=== PATIENT | male | born 1960 | race Caucasian/White ===

== ENCOUNTER 2017-08-09 19:12 | Inpatient (IN) | payer OTHER ==
[~2017-08-09] VITALS: Ht 182.9 cm; Wt 86.2 kg
--- NOTE | ~2017-08-09 | EKG ---
[address] [address] ELECTROCARDIOGRAM REPORT Name: JOYCE NICHOLS Room #: 205-P ADM IN M.R.#: [id number] Admission: 08/09/17 Attend Phys: Nancy Leon MD Discharge: Date of : 56 Report #: [id number] THIS REPORT FOR: //name// [facility] Test Date: 2017-08-18 Test Time: 06:10:27 Pat Name: JOYCE NIHCOLS Department: Room: 205 P Gender: M Product Consultant: REJI : 1960 Requested By: Michel Merchant Order Number: [id number] MD: Bran Dempsey Measurements Intervals [place] Rate: 69 P: 24 [place]: 157 QRS: 52 QRSD: 102 T: 59 QT: 612 QTc: 656 Interpretive Statements Sinus rhythm Prolonged QT interval Baseline wander in lead(s) I,III,aVL Compared to ECG 08/17/2017 12:11:41 Sinus rhythm has replaced atrial fibrillation the ST and T wave abnormality is less pronounced Electronically Signed On 08-18-2017 8:08:16 CDT by Bran Dempsey [email or web address] <ELECTRONICALLY SIGNED> By: Bran Dempsey MD, [facility] 08/18/17 0808 0610 Bran Dempsey MD, [facility] /EPI
--- NOTE | ~2017-08-09 | O ---
[facility] [place] [address] OPERATIVE REPORT Name: JOYCE NICHOLS Room #: 244-P ADM IN M.R.#: [id number] Admission: 08/09/17 Attend Phys: Nancy Leon MD Discharge: Date of : 56 Report #: [id number] THIS REPORT FOR: //name// CC: Hubert Merchant MD [facility] physician/PCP Nancy Leon PREOPERATIVE DIAGNOSES: Coronary artery disease, non-ST segment elevation myocardial infarction, normal left ventricular systolic function. FINAL DIAGNOSES: Coronary artery disease, non-ST segment elevation myocardial infarction, normal left ventricular systolic function. OPERATIVE PROCEDURE PERFORMED: 1. Coronary artery bypass grafting x 4 with left internal mammary artery to the left anterior descending, radial artery graft sequence to obtuse marginal 1 and obtuse marginal 2, saphenous vein graft to posterior descending artery. 2. Left radial artery harvest. SURGEON: Martin Littlejohn MD SERVICES MGR: Nicanor Pineda MD ANESTHESIA: General. OPERATIVE INDICATIONS: The patient is a 56-year-old male with a history of hypertension and hyperlipidemia who presented with chest pain, found to have non-ST segment elevation myocardial infarction, has undergone evaluation showing significant multivessel coronary artery disease, preserved left ventricular systolic function. He is brought to the operating room now for coronary artery bypass grafting. OPERATIVE SUMMARY: The patient brought to the operating room and placed on the OR table in supine position. After anesthesia was induced via the general endotracheal route and monitoring lines have been positioned, the patient was prepped and draped in sterile fashion with chlorhexidine. I first harvested radial artery from the left forearm using a Harmonic scalpel, saphenous vein was harvested from the left lower extremity using endoscopic techniques. A median sternotomy incision was then made and the left internal mammary artery was harvested by Dr. Pineda. I then was the primary surgeon for the remainder of this case. We opened the pericardium, systemically anticoagulated the patient with heparin. Cannulae were placed in ascending aorta and the right atrium. An antegrade cardioplegic cannula was positioned, cardiopulmonary bypass was begun, and then a retrograde cardioplegic cannula was positioned. Under low flow conditions, the aorta was crossclamped and the heart was arrested with approximately 1 liter of cold antegrade cardioplegia, followed by 500 mL of cold [address] [address] OPERATIVE REPORT Name: JOYCE NICHOLS Adama Room #: 244-P [facility]#: [id number] Admission: 08/09/17 Attend Phys: Nancy Leon MD Discharge: Date of : 56 Report #: [id number] retrograde cardioplegia. This was augmented with topical ice slush. Diastolic arrest was achieved and maintained throughout this operation with intermittent doses of cold retrograde and antegrade cardioplegia as well as topical ice slush. We first opened up the second obtuse marginal vessel. This was the one that bifurcated. We were able to easily pass a 1.5 mm probe into the distal aspect of this vessel. Thus, only 1 bypass was needed at this site. We constructed this anastomosis in an end-to-side fashion with 7-0 Prolene. We then opened up the ramus intermedius vessel. It was a large vessel, closer to 1.9 mm in size. We constructed a distal anastomosis in a fuls-po-ouvm fashion at this site. The radial artery was brought around and a proximal anastomosis was fashioned to the ascending aorta with 7-0 Prolene after a 4.8 punch aortotomy was created. Next, we examined the right coronary system. We looked at the posterolateral branch, it was small. We therefore opened up the posterior descending artery just after its takeoff. We were able to pass a 1.5 mm probe down the posterior descending artery and down the distal right coronary artery into the posterolateral branch. Therefore, only 1 graft was needed. This was performed with saphenous vein in an end-to-side fashion with 7-0 Prolene. We brought the saphenous vein around to the ascending aorta, measured it to the appropriate length, cut it and performed a proximal anastomosis to the ascending aorta with 6-0 Prolene after a 4.8 punch aortotomy was created. Lastly, the GEORGIE was anastomosed to the left anterior descending. The GEORGIE was of moderate size, but had good flow. The left anterior descending was a large vessel, greater than 2 mm in size at this site. A distal anastomosis was carried out in an end-to-side fashion with 7-0 Prolene and the pedicle was tacked to the epicardium with 6-0 Prolene. We then gave warm cardioplegia both retrograde and antegrade. We de-aired the ascending aorta and the vein grafts as well as the radial artery graft. Then, under low flow conditions the aorta crossclamp was released to begin the period of reperfusion. The patient was rewarmed to 37 degree centigrade. We placed atrial and ventricular pacing wires. The patient returned to sinus bradycardia. We did perform atrial pacing during this case. Three successive doses of calcium and a single dose of magnesium were given every 3-5 minute intervals. After a suitable period of reperfusion, the lungs were reinflated. The patient was weaned from cardiopulmonary bypass without inotropic support. Protamine was given to reverse the heparin, decannulation was effected. Once satisfactory hemostasis was achieved, we placed two 32-Czech chest tubes in the anterior mediastinum. A 24 Lalito drain was placed in the left pleural space. They were all brought out through separate stab incisions. The sternum was closed with #7 wire. The fascia, subcutaneous and skin were closed in multiple layers with absorbable sutures. The procedure was completed. The patient was taken to the [facility] [address] [place] [address] OPERATIVE REPORT Name: JOYCE NICHOLS Room #: 244-P [facility] IN .R.#: [id number] Admission: 08/09/17 Attend Phys: Nancy Leon MD Discharge: Date of : 56 Report #: [id number] CVICU in stable condition. Cardiopulmonary bypass time and crossclamp times are not available to me at the time of this dictation. <ELECTRONICALLY SIGNED> By: Martin Littlejohn MD 08/13/17 0745 1437 1721 Martin Littlejohn MD /nt
--- NOTE | ~2017-08-09 | H ---
[facility] [place] [address] [address] HISTORY AND PHYSICAL Name: JOYCE NICHOLS Room #: 216-P ADM IN M.R.#: [id number] Admission: 08/09/17 Attend Phys: Nancy Leon MD Discharge: Date of : 56 Report #: [id number] THIS REPORT FOR: //name// CC: [facility] physician/PCP Nancy Leon DATE OF SERVICE: 08/09/2017 ATTENDING PHYSICIAN: Dr. Bacon. PRIMARY CARE PHYSICIAN: Hubert Jeffries MD. CHIEF COMPLAINT: Coronary artery disease. HISTORY OF PRESENT ILLNESS: The patient is a 56-year-old male who presented on the morning of 08/09/2017 to [facility] with complaints of chest pain. He initially had chest pain around 2:00 in the morning when he was going to bed and later on woke up at 8:00 with worsening chest pain. He did have some ache in his left elbow as well. He was not having any jaw pain or shortness of breath with it. He does have a history of hypertension and hyperlipidemia and had run out of his medications one to two months ago and has not been able to get them refilled. He does take a low-dose aspirin occasionally. He says he had similar chest pain a few weeks ago that lasted for about 4 to 5 minutes, but it had resolved on its own. He was also admitted at [facility] for chest pain back in November 2016 and had a cardiac stress test, which was negative. He on his initial evaluation at [facility], he was noted to have a mildly elevated troponin of 0.11. He has already been taken to the laboratory analyst where he was found to have 70% left main artery disease, 99% circumflex disease, 60-70% RCA with 80% ramus occlusions and right KERLINE lesion of 80%. His EF is 60%. He was transferred to [facility] for cardiothoracic surgery evaluation for CABG. He is currently resting comfortably and in no acute distress. PAST MEDICAL HISTORY: GERD, hypertension, hyperlipidemia. PAST SURGICAL HISTORY: None. ALLERGIES: None. HOME MEDICATIONS: Atorvastatin 20 mg p.o. at bedtime, metoprolol 25 mg p.o. b.i.d., Protonix 40 mg daily, folic acid 1 mg p.o. daily and thiamine 100 mg p.o. daily. SOCIAL HISTORY: The patient smokes a half pack of cigarettes per day. He has been smoking for at least 40 years. He denies any drug use. He does drink alcohol regularly, usually about 6-8 beers per day throughout the evenings. He [address] [address] HISTORY AND PHYSICAL Name: JOYCE NICHOLS Room #: 216-P [facility] IN M.R.#: [id number] Admission: 08/09/17 Attend Phys: Nancy Leon MD Discharge: Date of : 56 Report #: [id number] does drink more on the weekends. His last drink was on Wednesday evening. He denies any problems of alcohol withdrawal symptoms in the past. He lives at home with his daughter and son-in-law. He works in [employer] in [employer]. FAMILY HISTORY: His mother had heart disease fairly young onset requiring her first CABG in her 50s. REVIEW OF SYSTEMS: Twelve point review of systems was reviewed with the patient, otherwise negative unless stated in the HPI. PHYSICAL EXAMINATION: GENERAL: The patient is an alert male, in no acute distress. VITAL SIGNS: Temperature is 36.3, heart rate 67, respirations 18, blood pressure 131/81, oxygen 99% on room air. HEENT: PERRLA. Sclerae is nonicteric. Oral mucosa is pink and moist. NECK: Supple, no JVD noted. CARDIOVASCULAR: Normal S1, S2. No murmurs, rubs or gallops. RESPIRATORY: Breath sounds are clear bilaterally. No wheezing or rhonchi. Breathing is nonlabored. ABDOMEN: Soft, nontender, nondistended without pain. VASCULAR: No edema noted. Pedal pulses are 2+. No calf tenderness. NEUROLOGIC: The patient is alert and oriented x 3. Speech is clear. He is answering questions appropriately and following commands. No focal neuro deficits noted. SKIN: Intact. No rashes or lesions. LABORATORY DATA AND DIAGNOSTICS: WBC is 6.9, hemoglobin is 16.6, platelets 269. Sodium 140, potassium 3.8, BUN 7, creatinine 1.0. Glucose 111. Lipase is 195. The LFTs are within normal limits. INR is 1.0. BNP is 168. Troponin is 0.11 and a chest x-ray was negative. ASSESSMENT AND PLAN: 1. Severe coronary artery disease. The patient was sent from [facility] for cardiothoracic surgery consultation. He will likely need a coronary artery bypass graft because of multivessel disease based on his cardiac catheterization today. We will consult Cardiothoracic Surgery as well as Cardiology. He had already been started on therapeutic Lovenox b.i.d., which we will continue. We will check a lipid panel and address cardiac risk factors. 2. Hypertension. Blood pressure is stable. Continue metoprolol at home. 3. Hyperlipidemia. Check lipid panel and continue statin therapy. 4. Tobacco abuse. The patient has been advised to quit. 5. Alcohol abuse. The patient denies any problems with alcohol withdrawal in the past. We will follow CIWA score and use Ativan p.r.n. 6. Deep vein thrombosis prophylaxis. Continue with Lovenox. [facility] [address] [address] HISTORY AND PHYSICAL Name: JOYCE NICHOLS Room #: 216-P ADM IN M.R.#: [id number] Admission: 08/09/17 Attend Phys: Nancy Leon MD Discharge: Date of : 56 Report #: [id number] We will continue to follow the patient closely throughout the hospitalization and make changes based on clinical status. <ELECTRONICALLY SIGNED> By: IGNACIO Grimaldo 08/10/17 0955 0908 0947 IGNACIO Grimaldo /nt
--- NOTE | ~2017-08-09 | HC ---
[facility] [place] [address] CONSULTATION Name: JOYCE NICHOLS Room #: 216-P ADM IN M.R.#: [id number] Admission: 08/09/17 Attend Phys: Nancy Leon MD Discharge: Date of : 56 Report #: [id number] THIS REPORT FOR: //name// CC: Hubert Jeffries MD [facility] physician/PCP Nancy Leon DATE OF SERVICE: 08/10/2017 HISTORY OF PRESENT ILLNESS: The patient is a 56-year-old single white male who was transferred from [facility] for consideration of coronary artery bypass surgery. The patient had a previous history of chest pain. He was actually admitted to [facility] in [place] in November of this year with chest pain. His troponin was noted to be 0.67. He underwent a nuclear stress test that actually showed no evidence of ischemia. Echocardiogram showed normal left ventricular function. He was placed on blood pressure medications and cholesterol lowering medications, which he stopped taking. Since that time, he continues to smoke and does not exercise on a regular basis. The patient noted about 2 weeks prior to admission he had an episode of chest pressure lasting several minutes and resolved. On the night prior to admission, again he had pressure chest, lasted several minutes and resolved. On August 09, he awakened at 8:00 in the morning with pressure in his chest felt short of breath. His daughter drove him to the emergency room. I actually saw him in consultation at [facility] on August 09. His symptoms seem to be consistent with unstable angina, so I recommended a cardiac catheterization. This was performed at [facility] on August 09. Results showed normal left ventricular function. There was a 70% stenosis of the proximal LAD and a 70% stenosis of the diagonal branch. There was a ramus intermediate branch that was noted to bifurcate both limbs, had 80% stenosis. The circumflex artery had a long mid subtotal 99% stenosis prior to a distal marginal branch. The right coronary artery had a mid 60% stenosis and a 70% stenosis at the distal bifurcation. Results were discussed with the patient. I felt he had severe multivessel coronary artery disease, not readily amenable to stenting. I recommended that he be considered for coronary artery bypass surgery. The patient was given subcutaneous Lovenox 80 mg following the procedure from his right radial artery. A Vasc band was placed. He was then transferred to [facility] for consideration of coronary artery bypass surgery. The patient has had no further chest pain since his admission. PAST MEDICAL HISTORY: Significant for no surgical procedures. MEDICATIONS: He currently is on no chronic medications. ALLERGIES: He has no known drug allergies. FAMILY HISTORY: His mother had coronary artery bypass surgery. [facility] [address] [place] [address] CONSULTATION Name: JOYCE NICHOLS Room #: 216-P [facility] IN M.R.#: [id number] Admission: 08/09/17 Attend Phys: Nancy Leon MD Discharge: Date of : 56 Report #: [id number] SOCIAL HISTORY: He is , lives with a daughter in [place], [place]. He works in sheet metal work. He smokes a half pack of cigarettes a day. He does drink up to 6-pack of beer a day. Denies illicit drug use. REVIEW OF SYSTEMS: He has no history of stroke, asthma, peptic ulcer disease, liver disease, kidney disease, cancer, psychiatric illness, or chronic skin condition. PHYSICAL EXAMINATION: GENERAL: Middle-aged male. VITAL SIGNS: Blood pressure was 130/80, pulse is 70, he was afebrile. HEENT: He was anicteric. Conjunctivae pink. Mucous membranes are moist. NECK: Veins nondistended. No carotid bruits. Neck was supple. CHEST: Clear to auscultation. HEART: Regular rate and rhythm without murmur. ABDOMEN: Soft and nontender. EXTREMITIES: Had no edema. Dorsalis pedis pulse 2+ bilaterally. SKIN: Warm and dry. NEUROLOGIC: Nonfocal. His chest x-ray at [facility] showed normal heart size, clear lung leung. ECG showed sinus rhythm without ST or T-wave change. LAB WORK: Cholesterol is 140. Creatinine 1.0 and glucose 111. Liver function studies were normal. Troponin was 0.11. Previous cholesterol was 194, triglyceride 179, HDL 40, and LDL 119. White blood cell count 6.9 and hemoglobin 16.6. IMPRESSION AND RECOMMENDATIONS: 1. Acute coronary syndrome. Secondary to coronary artery disease. 2. Coronary artery disease. Noted to be diffuse and multivessel. Recommend consideration for coronary artery bypass surgery. The patient will be seen by cardiovascular surgery. 3. Hypertension. I would recommend starting a beta toan. 4. Hypercholesterolemia. I would recommend starting a statin drug. 5. Tobacco abuse. Recommended smoking cessation. 6. Excessive alcohol intake. I would consider moderation in alcohol intake. <ELECTRONICALLY SIGNED> By: Michel Merchant MD, [facility] 08/11/17 1128 0808 1505 Michel Merchant MD, FACC /nt
--- NOTE | ~2017-08-09 | EKG ---
[address] [address] ELECTROCARDIOGRAM REPORT Name: JOYCE NICHOLS Room #: 244-P ADM IN M.R.#: [id number] Admission: 08/09/17 Attend Phys: Nancy Leon MD Discharge: Date of : 56 Report #: [id number] THIS REPORT FOR: //name// [facility] Test Date: 2017-08-12 Test Time: 15:49:03 Pat Name: JOYCE NICHOLS Department: Room: [facility] Gender: M Combat Control Manager: Julia GRAHAM : 1960 Requested By: Toma Wright Order Number: [id number] MD: Adolfo Rabago Measurements Intervals [place] Rate: 91 P: 62 NC: 144 QRS: 78 QRSD: 94 T: 79 QT: 382 QTc: 471 Interpretive Statements Sinus rhythm Abnormal R-wave progression, early transition No previous ECG available for comparison Electronically Signed On 08-12-2017 15:53:46 CDT by Adolfo Rabago [email or web address] <ELECTRONICALLY SIGNED> By: Adolfo Rabago MD 08/12/17 1553 1549 1549 Adolfo Rabago MD /RONALDO
--- NOTE | ~2017-08-09 | 2DMMODE ---
[facility] [address] [place] [address] 2 D/M-MODE ECHOCARDIOGRAM Name: SIMOENJOYCE W Room #: 216-P [facility] IN ..#: [id number] Admission: 08/09/17 Attend Phys: Nancy Leon Discharge: Date of : 56 Date of Service: 08/10/17 1248 Report #: [id number] THIS REPORT FOR: //name// APPROVED REPORT Study performed: 08/10/2017 10:09:46 EXAM: Comprehensive 2D, Doppler, and color-flow Echocardiogram Patient Location: Echo lab Room #: 216 Status: routine BSA: 2.01 HR: 52 bpm BP: 115/74 mmHg Rhythm: NSR Other Information Study Quality: Adequate Indications CAD. NSTEMI. Pre-Op CABG 2D Dimensions RVDd: 29.01 mm LVEF(%): 52.34 (>50%) IVSd: 9.30 (7-11mm) LVOT Diam: 21.63 (18-24mm) LVDd: 46.14 mm PWd: 8.32 (7-11mm) Ascending Ao: 33.41 (22-36mm) LVDs: 33.78 (25-40mm) Aortic Root: 39.44 mm York's LVEF: 52.34 % Volumes Left Atrial Volume (Systole) Single Plane 4CH: 21.57 mL Single Plane 2CH: 41.54 mL LA ESV Index: 17.00 mL/m2 Aortic Valve AoV Peak Cortez.: 0.94 m/s AO Peak Gr.: 3.53 mmHg LVOT Max P.68 mmHg LVOT Max V: 0.82 m/s EMMA Vmax: 3.20 cm2 Mitral Valve E/A Ratio: 1.0 MV Decel. Time: 249.95 ms [facility] [place] [address] 2 D/M-MODE ECHOCARDIOGRAM Name: JOYCE NICHOLS Room #: 216-P [facility] IN .R.#: [id number] Admission: 08/09/17 Attend Phys: Nancy Leon Discharge: Date of : 56 Date of Service: 08/10/17 1248 Report #: [id number] MV E Max Cortez.: 0.58 m/s MV A Cortez.: 0.59 m/s MV PHT: 72.49 ms IVRT: 78.43 ms Pulmonary Valve PV Peak Cortez.: 0.73 m/s PV Peak Gr.: 2.14 mmHg Pulmonary Vein P Vein S: 0.37 m/s P Vein D: 0.45 m/s P Vein S/D Ratio: 0.82 Tricuspid Valve RAP Estimate: 5.00 mmHg Left Ventricle The left ventricle is normal size. mild lateral hypokinesis There is normal left ventricular wall thickness. Left ventricular systolic function is normal. LVEF is 50- 55%. Mild diastolic dysfunction is present (impaired relaxation pattern). Right Ventricle The right ventricle is normal size. The right ventricular systolic function is normal. Atria The left atrium size is normal. The right atrium size is normal. Aortic Valve The aortic valve is normal in structure. Trace aortic regurgitation. There is no aortic valvular stenosis. Mitral Valve Mitral valve leaflets are mildly thickened. Trace mitral regurgitation. Tricuspid Valve The tricuspid valve is normal in structure. There is no tricuspid valve regurgitation noted. Pulmonic Valve Pulmonic valve is not well visualized. Great Vessels [facility] [address] [place] [address] 2 D/M-MODE ECHOCARDIOGRAM Name: JOYCE NICHOLS Room #: 216-P ADM IN M.R.#: [id number] Admission: 08/09/17 Attend Phys: Nancy Leon Discharge: Date of : 56 Date of Service: 08/10/17 1248 Report #: [id number] Aortic root is mildly dilated at 3.9cm. The ascending aorta is normal in size. IVC is normal in size and collapses >50% with inspiration. Pericardium There is no pericardial effusion. <Conclusion> LVEF is 50- 55%. mild lateral hypokinesis Trace aortic regurgitation. There is no aortic valvular stenosis. Trace mitral regurgitation. <ELECTRONICALLY SIGNED> By: Reji Key MD, FACC 09/26/17 1248 1248 1248 Reji Key MD, [facility] /INF
--- NOTE | ~2017-08-09 | EKG ---
[address] [address] ELECTROCARDIOGRAM REPORT Name: JOYCE NICHOLS Room #: 205-P ADM IN M.R.#: [id number] Admission: 08/09/17 Attend Phys: Nancy Leon MD Discharge: Date of : 56 Report #: [id number] THIS REPORT FOR: //name// [facility] Test Date: 2017-08-17 Test Time: 12:11:41 Pat Name: JOYCE NICHOLS Department: Room: 205 P Gender: M Marketing Services Specialist: Negar MARIN : 1960 Requested By: Mateus Bacon Order Number: [id number] MD: Adolfo Rabago Measurements Intervals [place] Rate: 111 P: [place]: QRS: 73 QRSD: 98 T: 37 QT: 402 QTc: 547 Interpretive Statements Atrial fibrillation Abnormal R-wave progression, early transition Baseline wander in lead(s) V1 Compared to ECG 08/17/2017 06:40:02 Electronically Signed On 08-17-2017 13:08:53 CDT by Adolfo Rabago [email or web address] <ELECTRONICALLY SIGNED> By: Adolfo Rabago MD 08/17/17 1308 1211 1211 Adolfo Rabago MD /EPI
--- NOTE | ~2017-08-09 | EKG ---
[address] [address] ELECTROCARDIOGRAM REPORT Name: SIMONEJOYCE W Room #: 205-P ADM IN M.R.#: [id number] Admission: 08/09/17 Attend Phys: Nancy Leon MD Discharge: Date of : 56 Report #: [id number] THIS REPORT FOR: //name// [facility] Test Date: 2017-08-17 Test Time: 06:40:02 Pat Name: JOYCE NICHOLS Department: Room: 205 Gender: M Vocational Counselor: : 1960 Requested By: Michel Merchant Order Number: [id number] MD: Bran Dempsey Measurements Intervals [place] Rate: 75 P: 66 MD: 149 QRS: 67 QRSD: 99 T: 64 QT: 421 QTc: 471 Interpretive Statements Sinus rhythm Early R-wave progression Compared to ECG 08/16/2017 12:42:25 No significant changes Electronically Signed On 08-17-2017 8:42:23 CDT by Bran Dempsey [email or web address] <ELECTRONICALLY SIGNED> By: Bran Dempsey MD, [facility] 08/17/17 0842 D: [id number] Bran Dempsey MD, FAC /EPI
--- NOTE | ~2017-08-09 | EKG ---
[address] [place] [address] ELECTROCARDIOGRAM REPORT Name: JOYCE NICHOLS Room #: 244-P ADM IN M.R.#: [id number] Admission: 08/09/17 Attend Phys: Nancy Leon MD Discharge: Date of : 56 Report #: [id number] THIS REPORT FOR: //name// [facility] Test Date: 2017-08-13 Test Time: 06:12:40 Pat Name: JOYCE NICHOLS Department: Room: 244 P Gender: M Painting Technician: REJI : 1960 Requested By: Toma Wright Order Number: [id number] MD: Bran Dempsey Measurements Intervals [place] Rate: 84 P: 6 NE: 142 QRS: 28 QRSD: 77 T: 63 QT: 391 QTc: 463 Interpretive Statements Sinus rhythm Abnormal R-wave progression, early transition Minimal diffuse ST elevation Compared to ECG 08/12/2017 15:49:03 ST (T wave) deviation now present Electronically Signed On 08-13-2017 8:58:38 CDT by Bran Dempsey [email or web address] <ELECTRONICALLY SIGNED> By: Bran Dempsey MD, [facility] 08/13/17 0858 0612 1 Bran Dempsey MD, [facility] /EPI
--- NOTE | ~2017-08-09 | EKG ---
[address] [address] ELECTROCARDIOGRAM REPORT Name: JOYCE NICHOLS Room #: 205-P ADM IN M.R.#: [id number] Admission: 08/09/17 Attend Phys: Nancy Leon MD Discharge: Date of : 56 Report #: [id number] THIS REPORT FOR: //name// [facility] Test Date: 2017-08-16 Test Time: 12:42:25 Pat Name: JOYCE NICHOLS Department: Room: 205 P Gender: M Palliative Care Physician: Negar MARIN : 1960 Requested By: Michel Merchant Order Number: [id number] MD: Adolfo Rabago Measurements Intervals [place] Rate: 80 P: 60 RI: 153 QRS: 64 QRSD: 92 T: 50 QT: 401 QTc: 463 Interpretive Statements Sinus rhythm Abnormal R-wave progression, early transition Compared to ECG 08/13/2017 06:12:40 ST (T wave) deviation no longer present Electronically Signed On 08-16-2017 16:37:47 CDT by Adolfo Rabago [email or web address] <ELECTRONICALLY SIGNED> By: Adolfo Rabago MD 08/16/17 1637 1242 1242 Adolfo Rabago MD /EPI
[~2017-08-09 19:12] MED LIST: ATORVASTATIN CA20 MG PO; FOLIC ACID1 MG PO; METOPROLOL TART25 MG PO; PROTONIX40 M1 PO; THIAMINE HCL100 MG PO
[2017-08-09 21:08] VITALS: BP 131/81
[2017-08-09 23:41] VITALS: BP 125/78
[2017-08-10 03:45] VITALS: BP 117/76
[2017-08-10 04:21] LABS: HEMATOCRIT 46.6 % (42.0-52.0); HEMOGLOBIN 15.5 gm/dL (14.0-18.0); MCH 31.7 pg (26.0-34.0); MCHC 33.2 g/dL (28.0-37.0); MCV 95.7 fL (80.0-100.0); RBC 4.87 mil/uL (4.50-6.00); WBC 9.3 thou/uL (4.0-11.0)
[2017-08-10 04:46] LABS: ANION GAP 10 mmol/L (7-16); BUN 9 mg/dL (7-18); CALCIUM 8.4 mg/dL (8.5-10.1); CHLORIDE 103 mmol/L (98-107); CHOLESTEROL 226 mg/dL (<200); CO2 25 mmol/L (21-32); CREATININE 0.9 mg/dL (0.7-1.3); GLUCOSE 90 mg/dL (74-106); HDL CHOLESTEROL 44 mg/dL (>40); LDL CHOLESTEROL 140 mg/dL (<100); MAGNESIUM 1.9 mg/dL (1.8-2.4); POTASSIUM 3.6 mmol/L (3.5-5.1); SODIUM 138 mmol/L (136-145); TC:HDL 5.1 Ratio (Not establshd); TRIGLYCERIDE 211 mg/dL (<150); VLDL 42 mg/dL (<40)
[2017-08-10 04:47] LABS: SERUM ASSESSMENT Clear
[2017-08-10 07:21] VITALS: BP 115/74
[2017-08-10 11:46] VITALS: BP 105/55
[2017-08-10 13:11] LABS: GLYCOHEMOGLOBIN (HGB A1C) 5.3 % (4.8-5.6)
[2017-08-10 15:18] VITALS: BP 111/72
[2017-08-10 15:48] LABS: ALBUMIN 3.3 g/dL (3.4-5.0); ALKALINE PHOSPHATASE 75 U/L (46-116); DIRECT BILIRUBIN < 0.1 mg/dL (<0.1-0.3); SGOT 31 U/L (15-37); SGPT 13 U/L (30-65); TOTAL BILIRUBIN 0.3 mg/dL (<0.1-1.0); TOTAL PROTEIN 6.2 g/dL (6.4-8.2)
[2017-08-10 17:24] LABS: APTT 29.4 Seconds (24.5-32.8)
[2017-08-10 18:46] LABS: URINE BILIRUBIN NEGATIVE (Negative); URINE BLOOD NEGATIVE (Negative); URINE COLOR YELLOW; URINE GLUCOSE-RANDOM* NEGATIVE (Negative); URINE KETONES NEGATIVE (Negative); URINE LEUKOCYTES-REFLEX NEGATIVE (Negative); URINE PROTEIN (DIPSTICK) NEGATIVE (Negative); URINE UROBILINOGEN 0.2 E.U./dl (0.2-1.0)
[2017-08-10 20:43] VITALS: BP 107/68
[2017-08-11 00:36] VITALS: BP 101/63
[2017-08-11 04:36] VITALS: BP 107/68
[2017-08-11 05:15] LABS: ABSOLUTE NEUTROPHILS 5.1 thou/uL (1.4-8.2); BASOPHILS 0.9 % (0.0-2.0); EOSINOPHILS 2.3 % (0.0-3.0); HEMATOCRIT 46.3 % (42.0-52.0); HEMOGLOBIN 15.8 gm/dL (14.0-18.0); LYMPHOCYTES 34.2 % (24.0-44.0); MCH 32.3 pg (26.0-34.0); MCHC 34.1 g/dL (28.0-37.0); MCV 94.8 fL (80.0-100.0); MONOCYTES 8.3 % (1.0-8.0); PLATELET COUNT 250 thou/uL (150-400); POLYS 54.3 % (36.0-66.0); RBC 4.89 mil/uL (4.50-6.00); RDW 13.7 % (10.5-14.5); WBC 9.4 thou/uL (4.0-11.0)
[2017-08-11 05:21] LABS: MANUAL DIFF NO
[2017-08-11 05:25] LABS: CALCIUM 8.7 mg/dL (8.5-10.1); POTASSIUM 3.6 mmol/L (3.5-5.1)
[2017-08-11 07:41] VITALS: BP 104/60
[2017-08-11 12:30] VITALS: BP 112/72
[2017-08-11 15:28] VITALS: BP 122/74
[2017-08-11 19:49] VITALS: BP 103/58
[2017-08-12 03:11] VITALS: BP 115/71
[2017-08-12 08:35] VITALS: BP 124/63
[2017-08-12 13:27] LABS: HEMATOCRIT 30.4 % (42.0-52.0); MCH 33.6 pg (26.0-34.0); MCHC 35.1 g/dL (28.0-37.0); MCV 95.8 fL (80.0-100.0); RBC 3.18 mil/uL (4.50-6.00); RDW 13.4 % (10.5-14.5); WBC 9.9 thou/uL (4.0-11.0)
[2017-08-12 13:30] LABS: HEMOGLOBIN 10.7 gm/dL (14.0-18.0)
[2017-08-12 13:42] LABS: APTT 26.7 Seconds (24.5-32.8); FIBRINOGEN 139.7 mg/dL (210-360); INR 1.2
[2017-08-12 13:43] LABS: PROTIME 12.6 Seconds (9.3-11.4)
[2017-08-12 14:12] LABS: POC BE -1 mmol/L (-2.0 to +3.0); POC FiO2 100 %; POC GLUCOSE 124 mg/dL (70-99); POC HCO3 23.9 mmol/L (22.0-26.0); POC HEMOGLOBIN 11.6 g/dL (14.0-18.0); POC POTASSIUM 4.1 mmol/L (3.5-5.1); POC SODIUM 135 mmol/L (136-145); POC pCO2 40.8 mmHg (35.0-45.0); POC pH 7.375 (7.360-7.450)
[2017-08-12 14:12] LABS: POC BE 3 mmol/L (-2.0 to +3.0); POC CA IONIZED 4.5 mg/dL (4.5-5.3); POC FiO2 100 %; POC GLUCOSE 129 mg/dL (70-99); POC HCO3 28.3 mmol/L (22.0-26.0); POC POTASSIUM 3.6 mmol/L (3.5-5.1); POC SODIUM 136 mmol/L (136-145); POC pH 7.387 (7.360-7.450)
[2017-08-12 14:12] LABS: POC BE 1 mmol/L (-2.0 to +3.0); POC CA IONIZED 4.1 mg/dL (4.5-5.3); POC FiO2 80 %; POC GLUCOSE 140 mg/dL (70-99); POC HCO3 25.3 mmol/L (22.0-26.0); POC HEMOGLOBIN 11.2 g/dL (14.0-18.0); POC POTASSIUM 4.1 mmol/L (3.5-5.1); POC SODIUM 134 mmol/L (136-145); POC pH 7.409 (7.360-7.450)
[2017-08-12 14:12] LABS: POC BE 2 mmol/L (-2.0 to +3.0); POC FiO2 100 %; POC GLUCOSE 158 mg/dL (70-99); POC HCO3 26.9 mmol/L (22.0-26.0); POC HEMOGLOBIN 9.9 g/dL (14.0-18.0); POC POTASSIUM 4.6 mmol/L (3.5-5.1); POC SODIUM 132 mmol/L (136-145); POC pCO2 45.3 mmHg (35.0-45.0); POC pH 7.382 (7.360-7.450)
[2017-08-12 14:12] LABS: POC BE 3 mmol/L (-2.0 to +3.0); POC CA IONIZED 3.9 mg/dL (4.5-5.3); POC FiO2 100 %; POC GLUCOSE 125 mg/dL (70-99); POC HCO3 27.6 mmol/L (22.0-26.0); POC HEMOGLOBIN 11.6 g/dL (14.0-18.0); POC POTASSIUM 4.2 mmol/L (3.5-5.1); POC SODIUM 135 mmol/L (136-145); POC pCO2 44.3 mmHg (35.0-45.0); POC pH 7.402 (7.360-7.450)
[2017-08-12 14:12] LABS: POC BE 6 mmol/L (-2.0 to +3.0); POC CA IONIZED 4.8 mg/dL (4.5-5.3); POC FiO2 100 %; POC GLUCOSE 107 mg/dL (70-99); POC HCO3 31.2 mmol/L (22.0-26.0); POC HEMOGLOBIN 15.3 g/dL (14.0-18.0); POC POTASSIUM 3.9 mmol/L (3.5-5.1); POC SODIUM 138 mmol/L (136-145); POC pCO2 54.1 mmHg (35.0-45.0); POC pH 7.369 (7.360-7.450)
[2017-08-12 14:12] LABS: POC BE 1 mmol/L (-2.0 to +3.0); POC FiO2 80 %; POC GLUCOSE 157 mg/dL (70-99); POC HCO3 26.2 mmol/L (22.0-26.0); POC HEMOGLOBIN 9.9 g/dL (14.0-18.0); POC POTASSIUM 4.5 mmol/L (3.5-5.1); POC SODIUM 132 mmol/L (136-145); POC pH 7.402 (7.360-7.450)
[2017-08-12 14:13] LABS: POC BE 0 mmol/L (-2.0 to +3.0); POC CA IONIZED 5.7 mg/dL (4.5-5.3); POC FiO2 100 %; POC GLUCOSE 123 mg/dL (70-99); POC HCO3 26.1 mmol/L (22.0-26.0); POC HEMOGLOBIN 11.9 g/dL (14.0-18.0); POC SODIUM 138 mmol/L (136-145); POC pCO2 49.9 mmHg (35.0-45.0); POC pH 7.327 (7.360-7.450)
[2017-08-12 14:13] LABS: POC BE 1 mmol/L (-2.0 to +3.0); POC CA IONIZED 6.5 mg/dL (4.5-5.3); POC FiO2 100 %; POC GLUCOSE 149 mg/dL (70-99); POC HCO3 26.5 mmol/L (22.0-26.0); POC HEMOGLOBIN 9.5 g/dL (14.0-18.0); POC POTASSIUM 4.4 mmol/L (3.5-5.1); POC SODIUM 133 mmol/L (136-145); POC pCO2 46.1 mmHg (35.0-45.0); POC pH 7.368 (7.360-7.450)
[2017-08-12 14:35] LABS: HEMATOCRIT 39.6 % (42.0-52.0); MCH 32.3 pg (26.0-34.0); MCHC 34.1 g/dL (28.0-37.0); MCV 94.9 fL (80.0-100.0); RBC 4.17 mil/uL (4.50-6.00); RDW 13.8 % (10.5-14.5); WBC 19.8 thou/uL (4.0-11.0)
[2017-08-12 14:36] LABS: HEMOGLOBIN 13.5 gm/dL (14.0-18.0)
[2017-08-12 14:43] LABS: CALCIUM 9.6 mg/dL (8.5-10.1); CREATININE 1.1 mg/dL (0.7-1.3); MAGNESIUM 2.9 mg/dL (1.8-2.4); POTASSIUM 4.6 mmol/L (3.5-5.1)
[2017-08-12 15:10] LABS: ABG SAMPLE TYPE ARTERIAL; BE(vivo) -6.9 mmol/L (-2 to +3); HCO3 19.5 mmol/L (22.0-26.0); O2(CT) 20.5 mL/dL (15.0-23.0); O2Hb 95.5 % (92.0-98.0); PCO2 42.3 mmHg (35.0-45.0); PO2 97.8 mmHg (80.0-100.0); sO2 96.7 % (92.0-98.0); tCO2 20.8 mmol/L (24.0-30.0)
[2017-08-12 15:11] LABS: pH 7.281 (7.360-7.450)
[2017-08-12 15:12] LABS: STICK SITE LINE
[2017-08-12 15:13] LABS: TIDAL VOLUME 600 ml
[2017-08-12 16:11] LABS: ABG SAMPLE TYPE ARTERIAL; BE(vivo) -5.4 mmol/L (-2 to +3); HCO3 20.2 mmol/L (22.0-26.0); LACTATE 2.24 mmol/L (0.5-2.0); O2(CT) 18.9 mL/dL (15.0-23.0); PCO2 39.6 mmHg (35.0-45.0); PO2 101.8 mmHg (80.0-100.0); sO2 97.3 % (92.0-98.0); tCO2 21.4 mmol/L (24.0-30.0)
[2017-08-12 16:12] LABS: STICK SITE LINE; TIDAL VOLUME 600 ml; pH 7.325 (7.360-7.450)
[2017-08-12 18:43] LABS: HEMATOCRIT 35.4 % (42.0-52.0); HEMOGLOBIN 12.3 gm/dL (14.0-18.0); MCH 32.8 pg (26.0-34.0); MCHC 34.8 g/dL (28.0-37.0); MCV 94.3 fL (80.0-100.0); RBC 3.75 mil/uL (4.50-6.00); RDW 13.7 % (10.5-14.5); WBC 15.7 thou/uL (4.0-11.0)
[2017-08-12 18:54] LABS: CALCIUM 8.5 mg/dL (8.5-10.1); CREATININE 1.3 mg/dL (0.7-1.3); MAGNESIUM 2.3 mg/dL (1.8-2.4); POTASSIUM 3.9 mmol/L (3.5-5.1)
[2017-08-12 20:54] LABS: ABG SAMPLE TYPE ARTERIAL; BE(vivo) -1.9 mmol/L (-2 to +3); HCO3 22.7 mmol/L (22.0-26.0); LACTATE 1.52 mmol/L (0.5-2.0); O2(CT) 16.8 mL/dL (15.0-23.0); O2Hb 97.6 % (92.0-98.0); PCO2 38.4 mmHg (35.0-45.0); PO2 176.7 mmHg (80.0-100.0); sO2 99.2 % (92.0-98.0); tCO2 23.9 mmol/L (24.0-30.0)
[2017-08-12 20:56] LABS: ABG COMMENT CPAPX30MIN; Pressure Support 8 cm H20; STICK SITE LINE
[2017-08-13] VITALS (15 sets, daily range): BP systolic 98–131; BP diastolic 57–92
[2017-08-13 05:13] LABS: ABG SAMPLE TYPE ARTERIAL; BE(vivo) -3.5 mmol/L (-2 to +3); HCO3 21.5 mmol/L (22.0-26.0); LACTATE 1.34 mmol/L (0.5-2.0); O2(CT) 16.1 mL/dL (15.0-23.0); O2Hb 95.7 % (92.0-98.0); PO2 94.6 mmHg (80.0-100.0); tCO2 22.7 mmol/L (24.0-30.0)
[2017-08-13 05:13] LABS: HEMATOCRIT 32.8 % (42.0-52.0); MCH 32.5 pg (26.0-34.0); MCHC 33.7 g/dL (28.0-37.0); MCV 96.6 fL (80.0-100.0); PLATELET COUNT 134 thou/uL (150-400); RBC 3.39 mil/uL (4.50-6.00); RDW 13.7 % (10.5-14.5); WBC 13.8 thou/uL (4.0-11.0)
[2017-08-13 05:14] LABS: STICK SITE LINE
[2017-08-13 05:17] LABS: MANUAL DIFF YES
[2017-08-13 05:22] LABS: CALCIUM 8.1 mg/dL (8.5-10.1); CREATININE 1.1 mg/dL (0.7-1.3); MAGNESIUM 2.1 mg/dL (1.8-2.4); POTASSIUM 4.1 mmol/L (3.5-5.1)
[2017-08-13 07:19] LABS: ABSOLUTE NEUTROPHILS 11.9 thou/uL (1.4-8.2); TOTAL CELL COUNT 100
[2017-08-14] VITALS (15 sets, daily range): BP systolic 103–144; BP diastolic 61–79
[2017-08-14 05:27] LABS: HEMATOCRIT 29.1 % (42.0-52.0); HEMOGLOBIN 9.9 gm/dL (14.0-18.0); MCH 32.6 pg (26.0-34.0); MCHC 33.9 g/dL (28.0-37.0); MCV 96.2 fL (80.0-100.0); PLATELET COUNT 119 thou/uL (150-400); RBC 3.02 mil/uL (4.50-6.00); RDW 13.9 % (10.5-14.5); WBC 9.4 thou/uL (4.0-11.0)
[2017-08-14 05:37] LABS: MANUAL DIFF YES
[2017-08-14 05:38] LABS: CALCIUM 8.2 mg/dL (8.5-10.1); CREATININE 1.1 mg/dL (0.7-1.3); POTASSIUM 3.6 mmol/L (3.5-5.1)
[2017-08-14 06:26] LABS: ABSOLUTE NEUTROPHILS 6.5 thou/uL (1.4-8.2); ANISOCYTOSIS 1+; ATYPICAL LYMPHS 1 %; TOTAL CELL COUNT 100
[2017-08-15 03:30] LABS: HEMATOCRIT 28.5 % (42.0-52.0); HEMOGLOBIN 9.7 gm/dL (14.0-18.0); MCH 32.5 pg (26.0-34.0); MCV 95.6 fL (80.0-100.0); PLATELET COUNT 146 thou/uL (150-400); RBC 2.98 mil/uL (4.50-6.00); RDW 13.6 % (10.5-14.5); WBC 8.5 thou/uL (4.0-11.0)
[2017-08-15 03:31] LABS: MANUAL DIFF YES
[2017-08-15 03:33] VITALS: BP 122/69
[2017-08-15 03:42] LABS: CALCIUM 8.2 mg/dL (8.5-10.1); POTASSIUM 3.5 mmol/L (3.5-5.1)
[2017-08-15 05:42] LABS: ABSOLUTE NEUTROPHILS 6.5 thou/uL (1.4-8.2); TOTAL CELL COUNT 100
[2017-08-15 07:22] VITALS: BP 104/69
[2017-08-15 11:07] VITALS: BP 96/58
[2017-08-15 15:23] VITALS: BP 110/73
[2017-08-15 20:00] VITALS: BP 100/56
[2017-08-16 03:01] VITALS: BP 114/69
[2017-08-16 03:18] LABS: CALCIUM 8.3 mg/dL (8.5-10.1); CREATININE 0.9 mg/dL (0.7-1.3); POTASSIUM 3.4 mmol/L (3.5-5.1)
[2017-08-16 08:00] VITALS: BP 108/61
[2017-08-16 11:20] VITALS: BP 120/81
[2017-08-16 16:00] VITALS: BP 119/70
[2017-08-16 19:35] VITALS: BP 124/74
[2017-08-17] VITALS (7 sets, daily range): BP systolic 100–135; BP diastolic 65–82
[2017-08-18 03:19] VITALS: BP 129/61
[2017-08-18 07:20] VITALS: BP 107/70
[2017-08-18 10:27] LABS: CALCIUM 8.5 mg/dL (8.5-10.1); CREATININE 0.8 mg/dL (0.7-1.3); MAGNESIUM 2.2 mg/dL (1.8-2.4); POTASSIUM 3.6 mmol/L (3.5-5.1)
[2017-08-18 12:12] VITALS: BP 103/61
[2017-08-18 15:11] VITALS: BP 100/63
[2017-08-18] MEDS ORDERED: COLACE100 MG PO (16:40)
[2017-08-18] MEDS ORDERED: PACERONE 200 M200 M1 PO (16:40)
[2017-08-18] MEDS ORDERED: XARELTO10 MG PO (16:40)
[2017-08-18] MEDS ORDERED: ASPIR 8181 MG PO (16:40)
[2017-08-18] MEDS ORDERED: METOPROLOL TART25 MG PO (16:40)
[2017-08-18] MEDS ORDERED: DIGOXIN250 MCG PO ×2 (16:40→16:45)
[2017-08-18 17:15] VITALS: BP 126/78
[2017-08-18 19:12] VITALS: BP 88/58
== END 2017-08-18 17:45 | disposition home or self-care (01) | DRG 235 ==
LOC: 2N 19:12 → TBA 08-12 08:07 → ICU 08-12 14:11 → 2N 08-14 16:58 → ENTRNSPT 08-18 17:42 → 2N 08-18 17:45
PROVIDERS: Internal Medicine Endocrinology, Diabetes & Metabolism; Nurse Practitioner; Nurse Practitioner Acute Care; Thoracic Surgery (Cardiothoracic Vascular Surgery)
PROC: 02HQ32Z Insertion of Monitoring Device into Right Pulmonary Artery, Percutaneous Approach (ICD-10-PCS; principal; 2017-08-12)
PROC: 03BC4ZZ Excision of Left Radial Artery, Percutaneous Endoscopic Approach (ICD-10-PCS; principal; 2017-08-12)
PROC: 02100Z9 Bypass Coronary Artery, One Artery from Left Internal Mammary, Open Approach (ICD-10-PCS; principal; 2017-08-12)
PROC: 4A133B3 Monitoring of Arterial Pressure, Pulmonary, Percutaneous Approach (ICD-10-PCS; principal; 2017-08-12)
PROC: 5A1221Z Performance of Cardiac Output, Continuous (ICD-10-PCS; principal; 2017-08-12)
PROC: 021009W Bypass Coronary Artery, One Artery from Aorta with Autologous Venous Tissue, Open Approach (ICD-10-PCS; principal; 2017-08-12)
PROC: B543ZZA Ultrasonography of Right Jugular Veins, Guidance (ICD-10-PCS; principal; 2017-08-12)
PROC: 02110AW Bypass Coronary Artery, Two Arteries from Aorta with Autologous Arterial Tissue, Open Approach (ICD-10-PCS; principal; 2017-08-12)
PROC: 05HM33Z Insertion of Infusion Device into Right Internal Jugular Vein, Percutaneous Approach (ICD-10-PCS; principal; 2017-08-12)
PROC: 06BQ4ZZ Excision of Left Saphenous Vein, Percutaneous Endoscopic Approach (ICD-10-PCS; principal; 2017-08-12)
DX: I25.110 Atherosclerotic heart disease of native coronary artery with unstable angina pectoris (principal); I21.4 Non-ST elevation (NSTEMI) myocardial infarction; I10 Essential (primary) hypertension; E78.5 Hyperlipidemia, unspecified; K21.9 Gastro-esophageal reflux disease without esophagitis; F17.210 Nicotine dependence, cigarettes, uncomplicated; F10.10 Alcohol abuse, uncomplicated; I48.91 Unspecified atrial fibrillation; Z79.899 Other long term (current) drug therapy; Z71.41 Alcohol abuse counseling and surveillance of alcoholic; Z71.6 Tobacco abuse counseling; Z82.49 Family history of ischemic heart disease and other diseases of the circulatory system; E78.00 Pure hypercholesterolemia, unspecified
CPT/HCPCS: 10078; 10081; 47000; 47001; 47002; 47297; 48888; 50010; 50249; 50409; 50497; 50662; 50668; 51301; 51467; 52131; 52190; 52314; 53327; 53358; 54118; 56524; 56525; 56526; 56527; 56528; 56529; 56531; 56533; 56534; 56660; 62110; 62950; 64029; 65002; 65003; 65020; 65043

== ENCOUNTER → 2017-09-08 | Outpatient (CLI) | payer OTHER ==
[~2017-09-08] MED LIST changes: +ASPIR 8181 MG PO; +COLACE100 MG PO; +DIGOXIN250 MCG PO; +PACERONE 200 M200 M1 PO; +XARELTO10 MG PO
== END ==
LOC: RAD 12:07
DX: J18.9 Pneumonia, unspecified organism (principal); Z95.1 Presence of aortocoronary bypass graft